=== PATIENT | male | born 1985 | race Caucasian/White ===

== ENCOUNTER 2017-10-13 15:51 | Emergency (ER) | payer MEDICAID ==
[2017-10-13] MEDS: DIPHENHYDRAMINE 50 MG INJ IM (16:32)
[2017-10-13] MEDS: METHYLPREDNISOLONE 125 MG INJ IM (16:32)
== END 2017-10-13 16:53 | disposition home or self-care (01) ==
LOC: FTE 15:51
DX: T63.441A Toxic effect of venom of bees, accidental (unintentional), initial encounter (principal)
CPT/HCPCS: 96372; 99284-25